=== PATIENT | female | born 1990 ===

== ENCOUNTER 2023-05-17 15:40 | Emergency (ER) ==
--- NOTE | 2023-05-17 16:43 | RAD REPORT ---
EXAM DESCRIPTION: Cami Single View05/17/2023 4:21 pm CLINICAL HISTORY: Syncope COMPARISON: none FINDINGS: The lungs appear clear of acute infiltrate. The heart is normal size IMPRESSION: No acute abnormalities displayed
[2023-05-17 16:49] LABS: Absolute Basophils 0.1 K/uL (0-0.5); Absolute Eosinophils 0.1 K/uL (0-0.5); Absolute Lymphocytes (CBC) 3.6 K/uL (0.7-4.9); Absolute Monocytes 0.6 K/uL (0.1-1.3); Absolute Neutrophil 5.5 K/uL (1.8-8.0); Basophils % 0.6 % (0-1.3); Hematocrit 40.7 % (36.0-45.0); Hemoglobin 14.2 g/dL (12.0-15.0); Lymphocytes % 36.5 % (15.3-44.8); MCHC 34.9 g/dL (32.0-36.0); MCV 85.9 fL (80-100); MPV 7.9 fL (7.6-11.3); Monocytes % 6.1 % (3.3-12.3); Neutrophils % 55.8 % (41.7-73.7); Nucleated Red Blood Cells % 0.1 % (0-0); Platelets 250 thou/uL (152-406); RBC Red Blood Cell Count 4.73 M/uL (3.86-4.86); Red Cell Distribution Width 13.8 % (12.1-15.2)
[2023-05-17 16:56] LABS: Specific Gravity 1.008 (1.005-1.030)
[2023-05-17 16:56] LABS: PT Prothrombin Time 10.5 SECONDS (9.5-12.5); PTT, Activated Partial Thromb 33.3 SECONDS (24.3-36.9); Protime INR 0.95
[2023-05-17 16:57] LABS: Specific Gravity 1.008 (1.005-1.030); Sqamous Epithelial <5 /HPF (None Seen); Urine Bacteria None Seen /HPF (<20); Urine Bilirubin NEGATIVE (Negative); Urine Blood Negative (Negative); Urine Clarity Extremely Turbid (Clear); Urine Color Colorless (Yellow); Urine Crystals Unidentified Many /HPF (None Seen); Urine Culture Reflex Order REFLEXED; Urine Glucose NEGATIVE (Negative); Urine Ketones NEGATIVE (Negative); Urine Microscopic Reflex YN ORDER UMIC; Urine Mucus Slight /HPF (None Seen); Urine Nitrite NEGATIVE (Negative); Urine Protein NEGATIVE (Negative); Urine RBC <5 /HPF (None Seen); Urine Urobilinogen Normal (Normal)
[2023-05-17 17:09] LABS: ALT/SGPT 31 U/L (13-56); AST/SGOT 13 U/L (15-37); Albumin 4.4 g/dL (3.4-5.0); Albumin/Globulin Ratio 1.2 (1.1-1.8); Alkaline Phosphatase 74 U/L (45-117); Anion Gap 9.1 mEq/L (5.0-15.0); BUN Blood Urea Nitrogen 14 mg/dL (7-18); Bicarbonate 28 mEq/L (21-32); Bilirubin Direct 0.1 mg/dL (0-0.2); Bilirubin Indirect, Calculated 0.4 mg/dL (0.2-0.8); Bilirubin Total 0.5 mg/dL (0.2-1.0); Globulin 3.6 g/dL (2.3-3.5); Glomerular Filtration Rate 85 ml/min (=/>90); Glucose Level 104 mg/dL (74-106); Magnesium 1.8 mg/dL (1.6-2.4); Potassium 3.1 mEq/L (3.5-5.1); Sodium Level 139 mEq/L (136-145)
[2023-05-17 17:10] LABS: Troponin High Sensitivity < 3.0 pg/mL (<58.9)
[2023-05-17] MEDS ORDERED: POTASSIUM 25 MEQ EFFERV TAB ONE (17:29)
[2023-05-17] MEDS ORDERED: NA CHLORIDE 0.9% 1,000 ML ONE (18:02)
--- NOTE | 2023-05-17 18:23 | EDPHYS ---
Physician Documentation [facility] Name: Aretha Henry Age: 32 yrs Sex: Female : 1990 Arrival Date: 05/17/2023 Time: 15:40 Bed 14 Private MD: ED Physician Harry Perla HPI: 05/16 15:59 This 32 yrs old Female presents to ER via Unassigned with complaints of syncope. sb4 15:59 Patient was getting allergy tested on her arm this afternoon when she had a syncopal sb4 episode. Apparently the quality assurance assessor administered 0.3 of subcu epinephrine following and sent her to the ED for further evaluation. Patient reports history of syncopal episodes, most recently on . She states that she has not been feeling well the past couple days, but attributes that to not being on her allergy medication. Historical: - Allergies: 15:50 PENICILLINS; rs5 - PMHx: 15:50 GI Issues; rs5 - PSHx: 15:50 None; rs5 - Immunization history:: Adult Immunizations up to date. - Infectious Disease History:: Denies. - Social history:: Smoking status: Patient denies any tobacco usage or history of. ROS: 15:59 Constitutional: Negative for fever, chills, and weight loss, sb4 15:59 Neuro: Positive for syncope, 15:59 All other systems are negative, Exam: 15:59 Constitutional: This is a well developed, well nourished patient who is awake, alert, sb4 and in no acute distress. Head/Face: Normocephalic, atraumatic. Eyes: Extra-ocular motions intact. Periorbital areas with no swelling, redness, or edema. ENT: Mucous membranes moist. Cardiovascular: Regular rate and rhythm with a normal S1 and S2. Respiratory: Lungs have equal breath sounds bilaterally, clear to auscultation and percussion. No rales, rhonchi or wheezes noted. No increased work of breathing, no retractions or nasal flaring. Abdomen/GI: Soft, non-tender, no distension. Skin: Warm, dry with normal turgor. Normal color with no rashes, no lesions, and no evidence of cellulitis. MS/ Extremity: Pulses equal, no cyanosis. Neurovascular intact. Full, normal range of motion. Neuro: Awake and alert, GCS 15, oriented to person, place, time, and situation. Motor strength 5/5 in all extremities. Sensory grossly intact. Vital Signs: 15:50 BP 120 / 75; Pulse 80; Resp 18; Pulse Ox 99% on R/A; rs5 17:20 BP 113 / 57 Supine; Pulse 65; rs5 17:22 BP 112 / 67 Sitting; Pulse 67; rs5 17:24 BP 101 / 72 Standing; Pulse 78; rs5 19:13 BP 108 / 72; Pulse 60; Resp 16; Temp 98.1; Pulse Ox 100% on R/A; Pain 0/10; pf1 19:13 Pain Scale: Adult pf1 MDM: 15:50 Patient medically screened. sb4 15:59 Differential Diagnosis: cardiac arrhythmia, emotional response, idiopathic syncope, sb4 , vasovagal episode. 18:21 Data reviewed: vital signs, nurses notes, EMS record, lab test result(s), EKG, sb4 radiologic studies, I have discussed the patient's presentation/case with the attending Emergency Department Physician; and as a result, I will discharge patient. Counseling: I had a detailed discussion with the patient and/or guardian regarding the historical points, exam findings, and any diagnostic results supporting the discharge/admit diagnosis, lab results, radiology results, to return to the emergency department if symptoms worsen or persist or if there are any questions or concerns that arise at home. 05/16 15:58 Order name: Basic Metabolic Panel; Complete Time: 17:16 sb4 05/16 15:58 Order name: CBC with Diff; Complete Time: 16:53 sb4 05/16 15:58 Order name: Hepatic Function; Complete Time: 17:16 sb4 05/16 15:58 Order name: Magnesium; Complete Time: 17:16 sb4 05/16 15:58 Order name: Test, Urine; Complete Time: 17:05 sb4 05/16 15:58 Order name: Protime (+inr); Complete Time: 17:05 sb4 05/16 15:58 Order name: Ptt, Activated; Complete Time: 17:05 sb4 05/16 15:58 Order name: Troponin High Sensitivity; Complete Time: 17:16 sb4 05/16 15:58 Order name: Urinalysis w/ reflexes; Complete Time: 17:05 sb4 05/16 16:59 Order name: Urine Culture EDWI 05/16 15:58 Order name: Chest Single View XRAY; Complete Time: 16:48 sb4 05/16 15:58 Order name: EKG; Complete Time: 15:58 sb4 05/16 15:58 Order name: Cardiac monitoring; Complete Time: 17:52 sb4 05/16 15:58 Order name: EKG - Nurse/Tech; Complete Time: 17:52 sb4 05/16 15:58 Order name: IV Saline Lock; Complete Time: 16:25 sb4 05/16 15:58 Order name: Labs collected and sent; Complete Time: 16:25 sb4 05/16 15:58 Order name: NPO; Complete Time: 16:25 sb4 05/16 15:58 Order name: O2 Per Protocol; Complete Time: 16:24 sb4 05/16 15:58 Order name: O2 Sat Monitoring; Complete Time: 16:24 sb4 05/16 15:58 Order name: Orthostatics; Complete Time: 17:52 sb4 EC:53 Rate is 57 beats/min. Rhythm is regular, Sinus bradycardia. TX interval is normal at sb4 152 msec. QRS interval is normal at 88 msec. QT interval is normal at 438 msec. No Q waves. T waves are Normal. No ST changes noted. Clinical impression: No evidence of ischemia. Interpreted by me. Reviewed by me. Administered Medications: 17:30 Drug: Potassium PO Effervescent Tablet 50 mEq PO once; dissolve in 4 ounces of water or rs5 juice Route: PO; 18:01 Follow up: Response: No adverse reaction rs5 18:14 Drug: NS 0.9% IV 1000 ml IV at 1 bolus Per protocol; 1000 mL bolus Route: IV; Rate: 1 rs5 bolus; Site: left antecubital; 18:30 Follow up: Response: No adverse reaction rs5 Disposition: 19:05 I was immediately available on-site in the Emergency Department for consultation in the ms3 care of the patient. Disposition Summary: 05/17/23 18:22 Discharge Ordered Notes: Location: Home sb4 Problem: new sb4 Symptoms: have improved sb4 Condition: Stable sb4 Diagnosis - vasovagal syncope sb4 Followup: sb4 - With: Emergency Department - When: As needed - Reason: Trouble breathing, Worsening of condition Discharge Instructions: - Discharge Summary Sheet sb4 - Vasovagal Syncope, Pediatric sb4 Forms: - Thank You Letter sb4 - Patient Portal Instructions sb4 - Leadership Thank You Letter sb4 Signatures: Dispatcher [employer] EDMS PerlaHarry, DO ms3 Kelsea Samano, PAPablo PAPablo sb4 Regan Hurtado, RN RN rs5 Corrections: (The following items were deleted from the chart) 15:59 15:58 BASIC METABOLIC PANEL+C.LAB.BRZ ordered. EDMS EDMS 15:59 15:58 CBC+H.LAB.BRZ ordered. EDMS EDMS 15:59 15:58 HEPATIC FUNCTION+C.LAB.BRZ ordered. EDMS EDMS 15:59 15:58 MAGNESIUM+C.LAB.BRZ ordered. EDMS EDMS 15:59 15:58 Test, Urine+UC.LAB.BRZ ordered. EDMS EDMS 15:59 15:58 PROTIME (+INR)+COAG.LAB.BRZ ordered. EDMS EDMS 15:59 15:58 PTT, ACTIVATED+COAG.LAB.BRZ ordered. EDMS EDMS 15:59 15:58 Troponin High Sensitivity+C.LAB.BRZ ordered. EDMS EDMS 15:59 15:58 Urinalysis+U.LAB.BRZ ordered. EDMS EDMS 17:55 15:50 Allergies: No Known Allergies; rs5 rs5 17:55 15:50 Home Meds: "GI Issues"; rs5 rs5 17:55 15:50 PMHx: None; rs5 rs5
--- NOTE | 2023-05-17 18:23 | ER ---
Nurse's Notes [facility] Name: Aretha Henry Age: 32 yrs Sex: Female : 1990 Arrival Date: 05/17/2023 Time: 15:40 Bed 14 Private MD: Diagnosis: vasovagal syncope Presentation: 05/16 15:50 Chief complaint: Patient states: "I was getting allergy tested today and I passed out rs5 during the test". 15:50 Method Of Arrival: EMS: [facility] rs5 15:50 Coronavirus screen: At this time, the client does not indicate any symptoms associated rs5 with coronavirus-19. Ebola Screen: No symptoms or risks identified at this time. Initial Sepsis Screen: Does the patient meet any 2 criteria? No. Patient's initial sepsis screen is negative. Does the patient have a suspected source of infection? No. Patient's initial sepsis screen is negative. Risk Assessment: Do you want to hurt yourself or someone else? Patient reports no desire to harm self or others. Onset of symptoms was May 17, 2023. 15:50 Acuity: MERON 3 rs5 Triage Assessment: 15:50 General: Appears in no apparent distress. comfortable, Behavior is calm, cooperative. rs5 Historical: - Allergies: 15:50 PENICILLINS; rs5 - PMHx: 15:50 GI Issues; rs5 - PSHx: 15:50 None; rs5 - Immunization history:: Adult Immunizations up to date. - Infectious Disease History:: Denies. - Social history:: Smoking status: Patient denies any tobacco usage or history of. Screenin:50 [facility] ED Fall Risk Assessment (Adult) History of falling in the last 3 months, rs5 including since admission No falls in past 3 months (0 pts) Confusion or Disorientation No (0 pts) Intoxicated or Sedated No (0 pts) Impaired Gait No (0 pts) Mobility Assist Device Used No (0 pt) Altered Elimination No (0 pt) Score/Fall Risk Level 0 - 2 = Low Risk Oriented to surroundings, Maintained a safe environment. 15:50 Abuse screen: Denies threats or abuse. Nutritional screening: No deficits noted. rs5 Tuberculosis screening: No symptoms or risk factors identified. Assessment: 15:50 General: Appears in no apparent distress. comfortable, Behavior is calm, cooperative. rs5 Pain: Denies pain. Neuro: Level of Consciousness is awake, alert, obeys commands, Oriented to person, place, time, situation, Denies blurred vision dizziness. Cardiovascular: Patient's skin is warm and dry. Rhythm is regular. Respiratory: Airway is patent Respiratory effort is even, unlabored, Respiratory pattern is regular, symmetrical. GI: Abdomen is round non-distended, Abd is soft and non tender. : No signs and/or symptoms were reported regarding the genitourinary system. EENT: No signs and/or symptoms were reported regarding the EENT system. Derm: Skin is intact, Skin is pink, warm \\T\\ dry. Musculoskeletal: Circulation, motion, and sensation intact. Range of motion: intact in all extremities. 17:01 Reassessment: No changes from previously documented assessment. rs5 17:20 Reassessment: To bedside for orthostatics. rs5 18:15 Reassessment: Patient and/or family updated on plan of care and expected duration. Pain rs5 level reassessed. Patient is alert, oriented x 3, equal unlabored respirations, skin warm/dry/pink. 18:49 General: Appears in no apparent distress. comfortable, well groomed, well developed, rs5 Behavior is calm, cooperative, appropriate for age, quiet. Pain: Denies pain. Neuro: No deficits noted. Level of Consciousness is awake, alert, obeys commands, Oriented to person, place, time, situation. Cardiovascular: No deficits noted. Capillary refill < 3 seconds Patient's skin is warm and dry. Respiratory: No deficits noted. Airway is patent Respiratory effort is even, unlabored, Respiratory pattern is regular, symmetrical. GI: No deficits noted. No signs and/or symptoms were reported involving the gastrointestinal system. : No deficits noted. No signs and/or symptoms were reported regarding the genitourinary system. EENT: No deficits noted. No signs and/or symptoms were reported regarding the EENT system. Derm: No deficits noted. Skin is intact, Skin is pink, warm \\T\\ dry. Musculoskeletal: No deficits noted. No signs and/or symptoms reported regarding the musculoskeletal system. Vital Signs: 15:50 BP 120 / 75; Pulse 80; Resp 18; Pulse Ox 99% on R/A; rs5 17:20 BP 113 / 57 Supine; Pulse 65; rs5 17:22 BP 112 / 67 Sitting; Pulse 67; rs5 17:24 BP 101 / 72 Standing; Pulse 78; rs5 19:13 BP 108 / 72; Pulse 60; Resp 16; Temp 98.1; Pulse Ox 100% on R/A; Pain 0/10; pf1 19:13 Pain Scale: Adult pf1 ED Course: 15:49 Patient arrived in ED. [id number] 15:50 Kelsea Samano [facility] sb4 15:50 Harry Perla DO is Attending Physician. sb4 15:50 Patient has correct armband on for positive identification. Placed in gown. Bed in low rs5 position. Call light in reach. Side rails up X2. 16:18 Regan Hurtado, STAN is Primary Nurse. rs5 16:22 Chest Single View XRAY In Process Unspecified. EDMS 16:37 Initial lab(s) drawn, by me, sent to lab. Urine collected: clean catch specimen, clear, rs5 Amount Voided: 300mL. Inserted saline lock: 22 gauge in right antecubital area, using aseptic technique. Blood collected. 17:54 Triage completed. rs5 19:13 No provider procedures requiring assistance completed. IV discontinued, intact, pf1 bleeding controlled, No redness/swelling at site. Pressure dressing applied. Administered Medications: 17:30 Drug: Potassium PO Effervescent Tablet 50 mEq PO once; dissolve in 4 ounces of water or rs5 juice Route: PO; 18:01 Follow up: Response: No adverse reaction rs5 18:14 Drug: NS 0.9% IV 1000 ml IV at 1 bolus Per protocol; 1000 mL bolus Route: IV; Rate: 1 rs5 bolus; Site: left antecubital; 18:30 Follow up: Response: No adverse reaction rs5 Medication: 17:56 VIS not applicable for this client. rs5 Outcome: 18:22 Discharge ordered by . sb4 18:49 Discharged to home ambulatory, rs5 18:49 Condition: stable rs5 18:49 Discharge instructions given to patient, family, Instructed on discharge instructions, follow up and referral plans. Demonstrated understanding of instructions, follow-up care, 18:50 Patient left the ED. rs5 Signatures: Dispatcher [employer] EDMS Kelsea aSmano PA-C PA-C sb4 Allison Marshall, RN RN pf1 Regan Hurtado RN RN rs5 [place] [email or web address] Corrections: (The following items were deleted from the chart) 17:54 15:50 Chief complaint: Patient states: "I was getting allergy tested today and I passed rs5 out during the procedure" rs5 17:55 15:50 Allergies: No Known Allergies; rs5 rs5 17:55 15:50 Home Meds: "GI Issues"; rs5 rs5 17:55 15:50 PMHx: None; rs5 rs5 05/17 07:54 05/16 19:13 Patient left the ED. rs5 rs5 05/17 07:05/16 18:15 Response: No adverse reaction rs5 rs5 05/17 06:05/16 19:14 General: Appears in no apparent distress. comfortable, well groomed, well rs5 developed, Behavior is calm, cooperative, appropriate for age, quiet, [facility] 05/17 07:05/16 19:14 Pain: Denies pain. [facility] rs 05/17 06:05/16 19:14 Neuro: No deficits noted. Level of Consciousness is awake, alert, obeys rs5 commands, Oriented to person, place, time, situation, [facility] 05/17 06:05/16 19:14 Cardiovascular: No deficits noted. Capillary refill < 3 seconds Patient's rs5 skin is warm and dry. pf1 05/17 06:05/16 19:14 Respiratory: No deficits noted. Airway is patent Respiratory effort is rs5 even, unlabored, Respiratory pattern is regular, symmetrical, [facility] 05/17 06:05/16 19:14 GI: No deficits noted. No signs and/or symptoms were reported involving the rs5 gastrointestinal system. pf1 05/17 06:05/16 19:14 : No deficits noted. No signs and/or symptoms were reported regarding the rs5 genitourinary system. pf1 05/17 06:05/16 19:14 EENT: No deficits noted. No signs and/or symptoms were reported regarding rs5 the EENT system. pf1 05/17 06:05/16 19:14 Derm: No deficits noted. Skin is intact, Skin is pink, warm \\T\\ dry. 1 [facility] 05/17 06:05/16 19:14 Musculoskeletal: No deficits noted. No signs and/or symptoms reported rs5 regarding the musculoskeletal system. pf1
--- NOTE | 2023-05-18 13:29 | EKG ---
Test Date: 2023-05-17 Test Time: 17:39:55 Leak Hunter: HUMBERTO MEASUREMENT RESULTS: Intervals: Rate: 57 [place]: 152 QRSD: 88 QT: 438 QTc: 426 [place]: P: 18 [place]: 152 QRS: 95 T: 74 INTERPRETIVE STATEMENTS: Sinus bradycardia Nonspecific ST and T wave abnormality Abnormal ECG No previous ECG available for comparison Electronically Signed On 05-18-23 13:27:48 CDT by Elier Farfan
== END 2023-05-17 19:13 | disposition home or self-care (01) ==
LOC: ER 15:40
DX: R55 Syncope and collapse (principal); Z88.0 Allergy status to penicillin
CPT/HCPCS: 93005; 87088; 85025; 81001; 87086; 80048; 36415; 83735; 81025; 85610; 80076; 85730; 84484; 71045; 99284; J7030